=== PATIENT | female | born 1985 | race American Indian/Alaskan Native ===

== ENCOUNTER 2021-07-17 23:55 | Emergency (ER) | payer BC ==
[2021-07-18 00:10] VITALS: BP 129/69
[2021-07-18] MEDS ORDERED: predniSONE 50 MG TAB PO ONE (04:57)
[2021-07-18] MEDS ORDERED: KETOROLAC 30 MG/1 ML INJ IM ONE (04:57)
[2021-07-18] MEDS ORDERED: GABAPENTIN 300 MG CAP PO ONE (04:57)
--- NOTE | 2021-07-18 05:14 | Emergency Department Report ---
ED General Adult HPI - General Chief complaint: Neuro Symptoms/Deficit Stated complaint: ARM NUMBNESS Source: patient Mode of arrival: Ambulatory Limitations: No Limitations - History of Present Illness Initial comments: Patient is a 36-year-old -[place] female with no past medical history presents to the ED with complaint of acute onset persistent severe nontraumatic left lateral neck pain that radiates to the left lateral shoulder, left arm with tingling sensation on the distal fingers for the last 6 hours. Patient states that the pain has been persistent and intermittent and worse with any movement. Patient denies chest pain, shortness of breath, diaphoresis, heavy lifting, fall, headache, nausea and vomiting, abdominal pain, fever, chills, cough or traumatic injury. MD Complaint: Left lateral neck, lateral shoulder and arm pain that radiates to the back -: Sudden, hour(s) (6) Location: back (mid-posterior thoracic), left, upper extremity (shoulder, arm and fingers) Radiation: neck (left lateral ), extremity (left shoulder and distal arm and fingers), distal (left arm and fingers) Severity scale (0 -10): 3 Quality: burning, sharp Consistency: intermittent Improves with: none Worsens with: movement Associated Symptoms: denies other symptoms. denies: confusion, chest pain, cough, diaphoresis, fever/chills, headaches, loss of appetite, malaise, nausea/vomiting, rash, shortness of breath, other Treatments Prior to Arrival: none - Related Data Previous Rx's Medication Instructions Recorded Last Taken Type Baclofen 20 mg PO Q12H PRN #20 tablet 07/18/21 Unknown Rx Gabapentin 300 mg PO QHS PRN #30 cap 07/18/21 Unknown Rx Naproxen 500 mg PO Q12H PRN #30 tablet 07/18/21 Unknown Rx predniSONE [Deltasone] 40 mg PO QDAY #10 tab 07/18/21 Unknown Rx Allergies Allergy/AdvReac Type Severity Reaction Status Date / Time Penicillins Allergy Hives Verified 07/18/21 00:12 ED Review of Systems ROS: Stated complaint: ARM NUMBNESS Other details as noted in HPI Constitutional: denies: chills, fever Eyes: denies: eye pain, eye discharge, vision change ENT: denies: ear pain, throat pain Respiratory: denies: cough, shortness of breath, wheezing Cardiovascular: denies: chest pain, palpitations Endocrine: no symptoms reported Gastrointestinal: denies: abdominal pain, nausea, diarrhea Genitourinary: denies: urgency, dysuria, discharge Musculoskeletal: back pain (Mid posterior thoracic pain), arthralgia (Left lateral neck and shoulder pain; distal left arm and finger tingling sensation). denies: joint swelling Skin: denies: rash, lesions Neurological: denies: headache, weakness, paresthesias Psychiatric: denies: anxiety, depression Hematological/Lymphatic: denies: easy bleeding, easy bruising ED Past Medical Hx - Past Medical History Previous Medical History?: No - Surgical History Past Surgical History?: No - Medications Home Medications: Home Medications Medication Instructions Recorded Confirmed Last Taken Type Baclofen 20 mg PO Q12H PRN #20 tablet 07/18/21 Unknown Rx Gabapentin 300 mg PO QHS PRN #30 cap 07/18/21 Unknown Rx Naproxen 500 mg PO Q12H PRN #30 tablet 07/18/21 Unknown Rx predniSONE [Deltasone] 40 mg PO QDAY #10 tab 07/18/21 Unknown Rx ED Physical Exam - General Limitations: No Limitations General appearance: alert, in no apparent distress - Head Head exam: Present: atraumatic, normocephalic, normal inspection - Eye Eye exam: Present: normal appearance, PERRL, EOMI Pupils: Present: normal accommodation - ENT ENT exam: Present: normal exam, normal orophraynx, mucous membranes moist, TM's normal bilaterally, normal external ear exam - Neck Neck exam: Present: normal inspection, tenderness (Palpable left lateral cervical musculoskeletal tenderness), full ROM. Absent: lymphadenopathy, thyromegaly - Respiratory Respiratory exam: Present: normal lung sounds bilaterally. Absent: respiratory distress, wheezes, rales, stridor, chest wall tenderness, accessory muscle use, decreased breath sounds, prolonged expiratory, other - Cardiovascular Cardiovascular Exam: Present: regular rate, normal rhythm, normal heart sounds. Absent: systolic murmur, diastolic murmur, rubs, gallop - GI/Abdominal GI/Abdominal exam: Present: soft, normal bowel sounds. Absent: tenderness, guarding, hyperactive bowel sounds, hypoactive bowel sounds, organomegaly - Extremities Exam Extremities exam: Present: normal inspection, full ROM, tenderness (Palpable left lateral sternocleidomastoid, left shoulder and distal left tenderness), normal capillary refill. Absent: pedal edema, joint swelling, calf tenderness - Back Exam Back exam: Present: normal inspection, full ROM. Absent: tenderness, CVA tenderness (R), CVA tenderness (L), muscle spasm, paraspinal tenderness, vertebral tenderness - Neurological Exam Neurological exam: Present: alert, oriented X3, CN II-XII intact, normal gait, reflexes normal - Psychiatric Psychiatric exam: Present: normal affect, normal mood - Skin Skin exam: Present: warm, dry, intact, normal color. Absent: rash ED Course Vital Signs 07/18/21 00:08 Temperature 98.7 F Pulse Rate 73 Respiratory 18 Rate Blood Pressure 129/69 O2 Sat by Pulse 100 Oximetry ED Medical Decision Making - Medical Decision Making This is a 36-year-old -[place] female with no past medical history presents to the ED with complaint of acute onset persistent severe nontraumatic left lateral neck pain that radiates to the left lateral shoulder, left arm with tingling sensation on the distal fingers for the last 6 hours. Patient states that the pain has been persistent and intermittent and worse with any movement. In the ED, patient is alert and oriented x3 and is not in any distress. Patient is hemodynamically stable. Patient heart score is 0, and patient has no risk factors. Patient symptoms are likely due to cervical radiculopathy of the left lateral neck. Patient was therefore treated for pain in the ED and discharged home on pain medications. Patient advised to follow-up with her primary care physician in 7 to 10 days for reevaluation or return to the ED immediately if symptoms get worse. - Differential Diagnosis Cervical radiculopathy; cervical muscle strain; muscle spasm; paresthesia Critical care attestation.: If time is entered above; I have spent that time in minutes in the direct care of this critically ill patient, excluding procedure time. ED Disposition Clinical Impression: Cervical radiculopathy, Strain of cervical portion of left trapezius muscle Muscle strain of left upper extremity Qualifiers: Encounter type: initial encounter Qualified Code(s): S46.912A - Strain of unspecified muscle, fascia and tendon at shoulder and upper arm level, left arm, initial encounter Disposition: HOME / SELF CARE / HOMELESS Is pt being admited?: No Does the pt Need Aspirin: No Condition: Stable Instructions: Muscle Strain, [id number], Cervical Radiculopathy, E asy-to-Read, Cervical Strain and Sprain Rehab-SportsMed Additional Instructions: Your symptoms are likely due to cervical radiculopathy. Therefore take medications with food, drink plenty of fluids and follow-up with your primary care physician in 7 to 10 days for reevaluation or return to the ED immediately if symptoms get worse. Prescriptions: Gabapentin 300 mg PO QHS PRN #30 cap PRN Reason: Neuropathy Baclofen 20 mg PO Q12H PRN #20 tablet PRN Reason: Muscle Spasm predniSONE [Deltasone] 40 mg PO QDAY #10 tab Naproxen 500 mg PO Q12H PRN #30 tablet PRN Reason: Pain , Severe (7-10) Referrals: [facility] [Provider Group] - 3-5 Days Time of Disposition: 05:18 Print Language: ARMENIAN
--- NOTE | 2021-07-18 12:19 | Electrocardiograph Report ---
[facility] Test Date: 2021-07-18 Test Time: 00:16:35 Pat Name: OSMAR ROOT Department: Room: Gender: F [employer]: NURSE : 1985 Requested By: FREDO SILVEIRA Order Number: [id number] Reading MD: Jr Goldberg Measurements Intervals [place] Rate: 81 P: 75 [place]: 145 QRS: 73 QRSD: 80 T: -35 QT: 292 QTc: 339 Interpretive Statements Sinus rhythm Probable left atrial enlargement ST depression, consider lateral ischemia No previous ECG available for comparison Electronically Signed On 07-18-2021 12:19:10 EST by Jr Goldberg
== END 2021-07-18 05:30 | disposition home or self-care (01) ==
LOC: ED 23:55
DX: S16.1XXA Strain of muscle, fascia and tendon at neck level, initial encounter (principal); S46.912A Strain of unspecified muscle, fascia and tendon at shoulder and upper arm level, left arm, initial encounter; Z88.0 Allergy status to penicillin; Z79.899 Other long term (current) drug therapy; X58.XXXA Exposure to other specified factors, initial encounter; Y93.89 Activity, other specified; Y92.89 Other specified places as the place of occurrence of the external cause; Y99.8 Other external cause status
CPT/HCPCS: 93005; 96372; 99282; J1885; J7512